=== PATIENT | female | born 1970 | race Asian ===

== ENCOUNTER → 2017-11-20 | Outpatient (CLI) | payer OTHER | END | disposition home or self-care (01) | LOC: RADPV 13:50 | PROVIDERS: ATTEND Internal Medicine | DX: R76.11 Nonspecific reaction to tuberculin skin test without active tuberculosis (principal) ==

== ENCOUNTER 2018-06-19 00:09 | Emergency (ER) | payer OTHER ==
[~2018-06-19] VITALS: Ht 157.5 cm; Wt 56.8 kg
[2018-06-19 02:00] VITALS: BP 131/65
== END 2018-06-19 02:36 | disposition home or self-care (01) ==
LOC: EMS 00:10
DX: M23.91 Unspecified internal derangement of right knee (principal); Z79.82 Long term (current) use of aspirin; Z87.891 Personal history of nicotine dependence
CPT/HCPCS: 29505; 29530; 99284

== ENCOUNTER → 2020-10-27 | Outpatient (CLI) | payer OTHER | END | disposition home or self-care (01) | LOC: RADPV 09:28 | PROVIDERS: ATTEND Internal Medicine | DX: R76.11 Nonspecific reaction to tuberculin skin test without active tuberculosis (principal) | CPT/HCPCS: 71045-TC ==

== ENCOUNTER 2021-01-31 06:48 | Day surgery (SDC) | payer OTHER ==
[2021-01-27 12:48] LABS: BASOPHILS % (AUTO) 1.3 % (0.0-2.0); EOSINOPHILS % (AUTO) 4.1 % (1.0-6.0); HEMATOCRIT 28.6 % (36-46); HEMOGLOBIN 8.9 g/dL (12.0-16.0); LYMPHOCYTES # (AUTO) 1.3 K/uL (1.0-4.8); LYMPHOCYTES % (AUTO) 28.2 % (22.0-44.0); MEAN CORPUSCULAR HEMOGLOBIN 23.7 pg (26.0-34.0); MEAN CORPUSCULAR VOLUME 76 fL (80-100); MONOCYTES # (AUTO) 0.3 K/uL (0.1-1.0); NEUTROPHILS # (AUTO) 2.7 K/uL (1.8-7.7); NEUTROPHILS % (AUTO) 59.4 % (40.0-70.0); PLATELET COUNT (AUTO) 352 K/uL (150-450); RED BLOOD CELL COUNT(AUTO) 3.74 MIL/uL (4.00-5.20)
[2021-01-27 13:01] LABS: PROTHROMBIN TIME 10.6 SEC (9.4-11.6)
[2021-01-27 13:06] LABS: ANION GAP 8 mmol/L (8-16); CALCIUM, TOTAL 9.4 mg/dL (8.8-10.5); CARBON DIOXIDE 28 mmol/L (22-29); CHLORIDE 102 mmol/L (98-107); CREATININE 0.55 mg/dL (0.60-1.30); GLOMERULAR FILTR. RATE CALC > 60 mL/min (>60); GLUCOSE,RANDOM 92 mg/dL (70-110); POTASSIUM 4.2 mmol/L (3.5-5.1); SODIUM SERUM 138 mmol/L (136-145); UREA NITROGEN, BLOOD 14 mg/dL (7-18)
[2021-01-27 13:29] LABS: COVID AG,FIA SOURCE NASOPHARYNGEAL
[~2021-01-31] VITALS: Ht 157.5 cm; Wt 59.1 kg
[~2021-01-31 06:48] MED LIST: ACET-2061 PO; CETI-450 PO; FERR-82 PO; RINGERS SOLUTION,LACTATED 1,000 ML IV ONE
[2021-01-31] MEDS ORDERED: RINGERS SOLUTION,LACTATED 1,000 ML IV ONE (07:00)
[2021-01-31] MEDS ORDERED: SODIUM CHLORIDE 0.9% 0 ML ONE (07:01)
[2021-01-31] MEDS ORDERED: SODIUM CL IRRIG SOLN BAG 6,000 ML IRRIG ONE (07:01)
[2021-01-31] MEDS ORDERED: CeFAZolin 2 GM/DEXTROSE 50 ML IV ONE ×2 (08:34→09:00)
[2021-01-31] MEDS ORDERED: FentaNYL CITRATE PF 100 MCG/2 ML VIAL IVP PRN (09:30)
[2021-01-31] MEDS ORDERED: MEPERIDINE-PF 25 MG/ML VIAL IVP PRN (09:30)
[2021-01-31] MEDS ORDERED: HYDROmorphone 2 MG/ML VIAL IVP PRN (09:30)
[2021-01-31] MEDS ORDERED: ACETAMINOPHEN 1000 MG/ISO-OSM 100 ML IV ONE (10:31)
[2021-01-31] MEDS ORDERED: SODIUM CL IRRIG SOLN BAG 3,000 ML IRRIG ONE (10:38)
[2021-01-31] MEDS ORDERED: SILVER NITRATE APPLICATOR 1 EA STICK TP ONE (11:06)
[2021-01-31] MEDS ORDERED: MIDAZOLAM HCL 2 MG/2 ML VIAL IVP ONE (12:00)
[2021-01-31] MEDS ORDERED: DEXAMETHASONE SOD PHOS 4 MG/ML VIAL IVP ONE (12:00)
[2021-01-31] MEDS ORDERED: LIDOCAINE/PF 2% 5 ML VIAL IM ONE (12:00)
[2021-01-31] MEDS ORDERED: ONDANSETRON HCL 4 MG/2 ML VIAL IVP ONE (12:00)
[2021-01-31] MEDS ORDERED: PROPOFOL 1% 20 ML VIAL IVP ONE (12:00)
[2021-01-31] MEDS ORDERED: FentaNYL CITRATE PF 100 MCG/2 ML VIAL IVP ONE (12:00)
[2021-01-31] MEDS ORDERED: OXYGEN THERAPY IH SCH (20:00)
== END 2021-01-31 13:50 | disposition home or self-care (01) ==
LOC: SURGERY 06:48
PROVIDERS: ATTEND Obstetrics & Gynecology
DX: N92.1 Excessive and frequent menstruation with irregular cycle (principal); D64.9 Anemia, unspecified; N84.1 Polyp of cervix uteri; D25.9 Leiomyoma of uterus, unspecified; Z79.899 Other long term (current) drug therapy; Z88.8 Allergy status to other drugs, medicaments and biological substances; Z72.89 Other problems related to lifestyle
CPT/HCPCS: 36415 ×2; 58561; 80048; 84702; 85025; 85610; 85730; 86850; 86900; 86901; 87426; 88305; C9803; J0131; J0690; J1100; J2250; J2405; J2704; J3010; J3490; J7120; J7050

== ENCOUNTER → 2021-09-19 | Outpatient (CLI) | payer OTHER ==
[~2021-09-19] MED LIST changes: -RINGERS SOLUTION,LACTATED 1,000 ML IV ONE
== END | disposition home or self-care (01) ==
LOC: RADMN 12:37
PROVIDERS: ATTEND Preventive Medicine Preventive Medicine/Occupational Environmental Medicine
DX: S86.911D Strain of unspecified muscle(s) and tendon(s) at lower leg level, right leg, subsequent encounter (principal); S29.012D Strain of muscle and tendon of back wall of thorax, subsequent encounter; M25.861 Other specified joint disorders, right knee; M17.11 Unilateral primary osteoarthritis, right knee; M25.461 Effusion, right knee; X58.XXXD Exposure to other specified factors, subsequent encounter
CPT/HCPCS: 73721

== ENCOUNTER → 2022-08-01 | Outpatient (CLI) | payer OTHER ==
[2022-08-01 14:32] LABS: BASOPHILS % (AUTO) 1.1 % (0.0-2.0); EOSINOPHILS % (AUTO) 4.1 % (1.0-6.0); HEMATOCRIT 34.7 % (36-46); HEMOGLOBIN 10.6 g/dL (12.0-16.0); LYMPHOCYTES # (AUTO) 1.3 K/uL (1.0-4.8); LYMPHOCYTES % (AUTO) 30.2 % (22.0-44.0); MEAN CORPUSCULAR HEMOGLOBIN 20.5 pg (26.0-34.0); MEAN CORPUSCULAR HGB CONC 30.5 G/dL (31.0-37.0); MEAN CORPUSCULAR VOLUME 67 fL (80-100); MONOCYTES # (AUTO) 0.2 K/uL (0.1-1.0); MONOCYTES % (AUTO) 5.3 % (2.0-9.0); NEUTROPHILS # (AUTO) 2.5 K/uL (1.8-7.7); NEUTROPHILS % (AUTO) 59.3 % (40.0-70.0); PLATELET COUNT (AUTO) 399 K/uL (150-450); RED BLOOD CELL COUNT(AUTO) 5.16 MIL/uL (4.00-5.20)
[2022-08-01 14:40] LABS: HEMOGLOBIN A1C 5.7 % (3.8-5.6)
[2022-08-01 14:52] LABS: % IRON SATURATION 4.5 % (22-44); IRON, SERUM 22 mcg/dL (50-175); TOTAL IRON BINDING CAPACITY 487 mcg/dL (250-450)
[2022-08-01 14:53] LABS: ALANINE AMINOTRANSFERASE 27 U/L (12-78); ALBUMIN 4.1 g/dL (3.4-5.0); ALKALINE PHOSPHATASE 104 U/L (46-116); ANION GAP 5 mmol/L (8-16); ASPARTATE AMINOTRANSFERASE 20 U/L (15-37); BILIRUBIN,TOTAL 0.5 mg/dL (0.1-1.0); C-REACTIVE PROTEIN QUANT 0.17 mg/dL (0.00-0.30); CALCIUM, TOTAL 9.1 mg/dL (8.8-10.5); CARBON DIOXIDE 29 mmol/L (22-29); CHLORIDE 103 mmol/L (98-107); CHOL/HDL RATIO 3.3 (3.9-5.7); CHOLESTEROL 200 mg/dL (131-200); CREATININE 0.59 mg/dL (0.60-1.30); FERRITIN 10 ng/mL (8-252); GLUCOSE,RANDOM 95 mg/dL (70-110); HDL CHOLESTEROL 61 mg/dL (40-60); LDL CHOL (CALC.) 126 mg/dL (0-130); POTASSIUM 3.8 mmol/L (3.5-5.1); SODIUM SERUM 137 mmol/L (136-145); THYROID STIMULATING HORMONE 0.64 uIU/mL (0.36-3.74); TOTAL PROTEIN, SERUM 8.4 g/dL (6.4-8.2); TRIGLYCERIDES 64 mg/dL (15-150); UREA NITROGEN, BLOOD 8 mg/dL (7-18)
[2022-08-01 14:55] LABS: GLOMERULAR FILTR. RATE CALC > 60 mL/min (>60)
[2022-08-01 15:44] LABS: ERYTHROCYTE SEDIMENTATION RATE 15 MM/HR (0-20)
== END | disposition home or self-care (01) ==
LOC: LABMN 13:43
PROVIDERS: ATTEND Internal Medicine Geriatric Medicine
DX: D64.9 Anemia, unspecified (principal); M54.50 Low back pain, unspecified
CPT/HCPCS: 80053; 80061; 82728; 83036; 83540; 83550; 84443; 85025; 85651; 86038; 86140; 86901

== ENCOUNTER → 2022-08-28 | Outpatient (CLI) | payer OTHER | END | disposition home or self-care (01) | LOC: RADPV 14:19 | PROVIDERS: ATTEND Internal Medicine Geriatric Medicine | DX: M47.816 Spondylosis without myelopathy or radiculopathy, lumbar region (principal); M48.04 Spinal stenosis, thoracic region; M48.061 Spinal stenosis, lumbar region without neurogenic claudication; M54.50 Low back pain, unspecified | CPT/HCPCS: 72072; 72100 ==

== ENCOUNTER → 2023-05-30 | Outpatient (CLI) | payer OTHER ==
[2023-05-30 12:12] LABS: BASOPHILS % (AUTO) 1.3 % (0.0-2.0); EOSINOPHILS % (AUTO) 5.9 % (1.0-6.0); HEMATOCRIT 33.6 % (36-46); HEMOGLOBIN 10.3 g/dL (12.0-16.0); LYMPHOCYTES # (AUTO) 1.6 K/uL (1.0-4.8); MEAN CORPUSCULAR HEMOGLOBIN 20.2 pg (26.0-34.0); MEAN CORPUSCULAR HGB CONC 30.5 G/dL (31.0-37.0); MEAN CORPUSCULAR VOLUME 66 fL (80-100); MONOCYTES # (AUTO) 0.3 K/uL (0.1-1.0); MONOCYTES % (AUTO) 6.9 % (2.0-9.0); NEUTROPHILS # (AUTO) 2.3 K/uL (1.8-7.7); NEUTROPHILS % (AUTO) 50.9 % (40.0-70.0); PLATELET COUNT (AUTO) 379 K/uL (150-450); RED BLOOD CELL COUNT(AUTO) 5.06 MIL/uL (4.00-5.20); RED CELL DISTRIBUTION WIDTH 18.8 % (11.5-14.5)
[2023-05-30 12:25] LABS: HEMOGLOBIN A1C 5.3 % (3.8-5.6)
[2023-05-30 12:37] LABS: % IRON SATURATION 3.5 % (22-44); IRON, SERUM 16 mcg/dL (50-175); TOTAL IRON BINDING CAPACITY 456 mcg/dL (250-450)
[2023-05-30 12:50] LABS: ALANINE AMINOTRANSFERASE 25 U/L (12-78); ALBUMIN 3.9 g/dL (3.4-5.0); ALKALINE PHOSPHATASE 105 U/L (46-116); ANION GAP 7 mmol/L (8-16); ASPARTATE AMINOTRANSFERASE 19 U/L (15-37); BILIRUBIN,TOTAL 0.2 mg/dL (0.1-1.0); CALCIUM, TOTAL 9.1 mg/dL (8.8-10.5); CARBON DIOXIDE 28 mmol/L (22-29); CHLORIDE 103 mmol/L (98-107); CHOL/HDL RATIO 3.5 (3.9-5.7); CHOLESTEROL 212 mg/dL (131-200); CREATININE 0.64 mg/dL (0.60-1.30); FERRITIN 7 ng/mL (8-252); GLOMERULAR FILTR. RATE CALC > 60 mL/min (>60); GLUCOSE,RANDOM 102 mg/dL (70-110); HDL CHOLESTEROL 61 mg/dL (40-60); LDL CHOL (CALC.) 134 mg/dL (0-130); POTASSIUM 4.3 mmol/L (3.5-5.1); SODIUM SERUM 138 mmol/L (136-145); TOTAL PROTEIN, SERUM 8.6 g/dL (6.4-8.2); TRIGLYCERIDES 85 mg/dL (15-150)
== END | disposition home or self-care (01) ==
LOC: LABMN 11:46
PROVIDERS: ATTEND Internal Medicine Geriatric Medicine
DX: D50.9 Iron deficiency anemia, unspecified (principal)
CPT/HCPCS: 80053; 80061; 82728; 83036; 83540; 83550; 85025

== ENCOUNTER → 2023-12-20 | Outpatient (CLI) | payer OTHER ==
[2023-12-20 14:13] LABS: BASOPHILS % (AUTO) 0.8 % (0.0-2.0); EOSINOPHILS % (AUTO) 3.9 % (1.0-6.0); HEMATOCRIT 34.5 % (36-46); HEMOGLOBIN 10.9 g/dL (12.0-16.0); LYMPHOCYTES # (AUTO) 1.2 K/uL (1.0-4.8); LYMPHOCYTES % (AUTO) 28.5 % (22.0-44.0); MEAN CORPUSCULAR HEMOGLOBIN 23.3 pg (26.0-34.0); MEAN CORPUSCULAR HGB CONC 31.6 G/dL (31.0-37.0); MEAN CORPUSCULAR VOLUME 74 fL (80-100); MONOCYTES # (AUTO) 0.3 K/uL (0.1-1.0); MONOCYTES % (AUTO) 6.1 % (2.0-9.0); NEUTROPHILS # (AUTO) 2.6 K/uL (1.8-7.7); NEUTROPHILS % (AUTO) 60.7 % (40.0-70.0); PLATELET COUNT (AUTO) 346 K/uL (150-450); RED BLOOD CELL COUNT(AUTO) 4.69 MIL/uL (4.00-5.20); RED CELL DISTRIBUTION WIDTH 18.7 % (11.5-14.5); WHITE BLOOD COUNT (AUTO) 4.3 K/uL (4.5-11.0)
[2023-12-20 14:23] LABS: ERYTHROCYTE SEDIMENTATION RATE 52 MM/HR (0-30)
[2023-12-20 14:39] LABS: ALANINE AMINOTRANSFERASE 49 U/L (12-78); ALBUMIN 3.7 g/dL (3.4-5.0); ALKALINE PHOSPHATASE 97 U/L (46-116); ANION GAP 9 mmol/L (8-16); ASPARTATE AMINOTRANSFERASE 26 U/L (15-37); BILIRUBIN,TOTAL 0.3 mg/dL (0.1-1.0); C-REACTIVE PROTEIN QUANT 0.17 mg/dL (0.00-0.30); CALCIUM, TOTAL 9.2 mg/dL (8.8-10.5); CARBON DIOXIDE 29 mmol/L (22-29); CHLORIDE 102 mmol/L (98-107); CREATININE 0.54 mg/dL (0.60-1.30); FREE T4 (FREE THYROXINE) 0.95 ng/dL (0.76-1.46); GLOMERULAR FILTR. RATE CALC > 60 mL/min (>60); GLUCOSE,RANDOM 89 mg/dL (70-110); POTASSIUM 3.7 mmol/L (3.5-5.1); SODIUM SERUM 140 mmol/L (136-145); THYROID STIMULATING HORMONE 0.67 uIU/mL (0.36-3.74); TOTAL PROTEIN, SERUM 7.9 g/dL (6.4-8.2); UREA NITROGEN, BLOOD 14 mg/dL (7-18)
[2023-12-20 14:49] LABS: % IRON SATURATION 5.8 % (22-44); IRON, SERUM 25 mcg/dL (50-175); TOTAL IRON BINDING CAPACITY 427 mcg/dL (250-450)
[2023-12-20 15:03] LABS: RBC MORPHOLOGY COMMENT ABNORMAL RBC MORPH
== END | disposition home or self-care (01) ==
LOC: LABMN 13:28
PROVIDERS: ATTEND Internal Medicine Geriatric Medicine
DX: D50.9 Iron deficiency anemia, unspecified (principal); D64.9 Anemia, unspecified; M25.50 Pain in unspecified joint
CPT/HCPCS: 80053; 82607; 82746; 83540; 83550; 84439; 84443; 85025; 85651; 86140

== ENCOUNTER → 2023-12-20 | Outpatient (CLI) | payer OTHER | END | disposition home or self-care (01) | LOC: RADMN 13:32 | PROVIDERS: ATTEND Internal Medicine | DX: R76.11 Nonspecific reaction to tuberculin skin test without active tuberculosis (principal); M47.814 Spondylosis without myelopathy or radiculopathy, thoracic region | CPT/HCPCS: 71045 ==

== ENCOUNTER 2024-01-06 23:58 | Emergency (ER) | payer OTHER ==
[~2024-01-06] VITALS: Ht 157.5 cm; Wt 72.7 kg
[2024-01-07 00:06] VITALS: BP 156/93; PULSE 108; RESP 22; TEMP 98
[2024-01-07] MEDS ORDERED: CYCL10TA16 PO (00:36)
[2024-01-07] MEDS ORDERED: DULO-113 PO (00:36)
[2024-01-07] MEDS ORDERED: OXYC-38 PO (00:56)
[2024-01-07] MEDS ORDERED: METH-812 PO (00:56)
[2024-01-07] MEDS: METHOCARBAMOL 500 MG TABLET PO ONE (01:06)
[2024-01-07] MEDS: HYDROCODONE/ACETAMINOPHEN 5-325 MG TABLET PO ONE (01:06)
== END 2024-01-07 01:09 | disposition home or self-care (01) ==
LOC: EMS 23:59
DX: M54.50 Low back pain, unspecified (principal); G89.29 Other chronic pain; M54.9 Dorsalgia, unspecified; M79.7 Fibromyalgia; Z88.6 Allergy status to analgesic agent; Z91.040 Latex allergy status
CPT/HCPCS: 93005; 99283

== ENCOUNTER → 2024-01-14 | Outpatient (CLI) | payer OTHER ==
[~2024-01-14] MED LIST changes: +CYCL10TA16 PO; +DULO-113 PO; +METH-812 PO; +OXYC-38 PO
[2024-01-14 15:19] LABS: C-REACTIVE PROTEIN QUANT 0.09 mg/dL (0.00-0.30)
[2024-01-14 15:29] LABS: URIC ACID 5.1 mg/dL (2.6-7.2)
[2024-01-21 15:06] LABS: ANA,IFA (TITER & PATTERN) Negative
== END | disposition home or self-care (01) ==
LOC: LABMN 14:27
PROVIDERS: ATTEND Internal Medicine Geriatric Medicine
DX: M25.50 Pain in unspecified joint (principal)
CPT/HCPCS: 81374; 84550; 85651; 86038; 86140; 86431

== ENCOUNTER 2024-01-30 16:37 | Emergency (ER) | payer OTHER ==
[~2024-01-30] VITALS: Ht 167.6 cm; Wt 68.2 kg
[2024-01-30 17:46] LABS: BASOPHILS % (AUTO) 0.9 % (0.0-2.0); EOSINOPHILS % (AUTO) 5.2 % (1.0-6.0); HEMOGLOBIN 11.7 g/dL (12.0-16.0); LYMPHOCYTES # (AUTO) 1.2 K/uL (1.0-4.8); MEAN CORPUSCULAR HEMOGLOBIN 24.1 pg (26.0-34.0); MEAN CORPUSCULAR HGB CONC 31.5 G/dL (31.0-37.0); MEAN CORPUSCULAR VOLUME 76 fL (80-100); MONOCYTES # (AUTO) 0.3 K/uL (0.1-1.0); MONOCYTES % (AUTO) 7.6 % (2.0-9.0); NEUTROPHILS # (AUTO) 2.1 K/uL (1.8-7.7); NEUTROPHILS % (AUTO) 55.3 % (40.0-70.0); PLATELET COUNT (AUTO) 314 K/uL (150-450); RED BLOOD CELL COUNT(AUTO) 4.85 MIL/uL (4.00-5.20); RED CELL DISTRIBUTION WIDTH 19.2 % (11.5-14.5); WHITE BLOOD COUNT (AUTO) 3.9 K/uL (4.5-11.0)
[2024-01-30 17:55] LABS: RBC MORPHOLOGY COMMENT ABNORMAL RBC MORPH
[2024-01-30 18:02] LABS: ALANINE AMINOTRANSFERASE 216 U/L (12-78); ALBUMIN 3.8 g/dL (3.4-5.0); ALKALINE PHOSPHATASE 149 U/L (46-116); ANION GAP 9 mmol/L (8-16); ASPARTATE AMINOTRANSFERASE 159 U/L (15-37); BILIRUBIN,TOTAL 0.6 mg/dL (0.1-1.0); CALCIUM, TOTAL 9.1 mg/dL (8.8-10.5); CARBON DIOXIDE 28 mmol/L (22-29); CHLORIDE 101 mmol/L (98-107); CREATININE 0.67 mg/dL (0.60-1.30); GLOMERULAR FILTR. RATE CALC > 60 mL/min (>60); GLUCOSE,RANDOM 96 mg/dL (70-110); POTASSIUM 3.5 mmol/L (3.5-5.1); SODIUM SERUM 138 mmol/L (136-145); TOTAL PROTEIN, SERUM 8.4 g/dL (6.4-8.2); UREA NITROGEN, BLOOD 8 mg/dL (7-18)
[2024-01-30 19:14] LABS: APPEARANCE,URINE CLEAR (CLEAR); BILIRUBIN,URINE NEGATIVE (NEGATIVE); COLOR,URINE YELLOW (YELLOW); GLUCOSE, URINE (UA) NEGATIVE (NEGATIVE); LEUKOCYTE ESTERASE ,URINE NEGATIVE (NEGATIVE); NITRATE,URINE NEGATIVE (NEGATIVE); OCCULT BLOOD,URINE NEGATIVE (NEGATIVE); PH,URINE 5.5 (5.0-8.0); PROTEIN,URINE TRACE mg/dL (NEGATIVE); SPECIFIC GRAVITIY, URINE 1.026 (1.003-1.030); UROBILINOGEN,URINE <=1.0 mg/dL (<=1.0)
[2024-01-31 00:01] VITALS: TEMP 98.1
[2024-01-31] MEDS: IBUPROFEN 600 MG TABLET PO ONE (00:20)
[2024-01-31 00:28] VITALS: BP 129/65; PULSE 65; RESP 18
== END 2024-01-31 00:29 | disposition home or self-care (01) ==
LOC: EMS 16:37
DX: G89.29 Other chronic pain (principal); M54.50 Low back pain, unspecified; Z87.891 Personal history of nicotine dependence; Z98.890 Other specified postprocedural states; Z88.6 Allergy status to analgesic agent
CPT/HCPCS: 74176; 76700; 80053; 81003; 83690; 85025; 99285

== ENCOUNTER → 2024-02-04 | Outpatient (CLI) | payer OTHER ==
[~2024-02-04] MED LIST changes: -ACET-2061 PO; -CETI-450 PO; -CYCL10TA16 PO; -FERR-82 PO
[2024-02-04 15:47] LABS: CHOL/HDL RATIO 3.1 (3.9-5.7); HEMOGLOBIN A1C 5.5 % (3.8-5.6)
== END | disposition home or self-care (01) ==
LOC: LABMN 15:11
PROVIDERS: ATTEND Internal Medicine Cardiovascular Disease
DX: R07.89 Other chest pain (principal); R00.2 Palpitations
CPT/HCPCS: 80061; 83036

== ENCOUNTER → 2024-02-26 | Outpatient (CLI) | payer OTHER | END | disposition home or self-care (01) | LOC: RADPV 13:15 | PROVIDERS: ATTEND Internal Medicine Cardiovascular Disease | DX: I34.0 Nonrheumatic mitral (valve) insufficiency (principal) | CPT/HCPCS: 93306 ==

== ENCOUNTER 2024-07-26 23:03 | Emergency (ER) | payer OTHER ==
[~2024-07-26] VITALS: Ht 157.5 cm; Wt 69.5 kg
[2024-07-26 23:25] VITALS: TEMP 98.7
[2024-07-27 00:03] VITALS: BP 136/78; PULSE 81; RESP 15; O2SAT 99
== END 2024-07-27 00:05 | disposition home or self-care (01) ==
LOC: EMS 23:03
DX: M25.511 Pain in right shoulder (principal); M54.2 Cervicalgia; M79.7 Fibromyalgia; Z88.6 Allergy status to analgesic agent; Z79.899 Other long term (current) drug therapy; X58.XXXA Exposure to other specified factors, initial encounter; Y93.89 Activity, other specified; Y92.89 Other specified places as the place of occurrence of the external cause; Y99.0 Civilian activity done for income or pay
CPT/HCPCS: 99282; Z7502